=== PATIENT | female | born 1970 | race Caucasian/White ===

== ENCOUNTER → 2016-08-10 | Outpatient (CLI) | payer OTHER | LOC: FIMAGING 11:01 | PROVIDERS: ATTEND Otolaryngology | DX: R05 Cough (principal) ==

== ENCOUNTER 2016-10-15 15:03 | Emergency (ER) | payer OTHER ==
[2016-10-15 15:12] VITALS: BP 112/69; PULSE 90; RESP 16; TEMP 98.2; O2SAT 96
[2016-10-15] MEDS ORDERED: IBUPROFEN 600 MG TAB PO ONE (15:15)
--- NOTE | 2016-10-15 15:17 | EDPHY ---
H & P Time Seen by Provider: 10/15/16 15:17 HPI/ROS: CHIEF COMPLAINT: Left great toe pain HISTORY OF PRESENT ILLNESS: Dropped a rock on it (assembler type bar and segment) 4 days ago accidentally and continues to have pain. Blood under the toenail. REVIEW OF SYSTEMS: No other injuries PAST MEDICAL HISTORY: Includes appendectomy, tonsillectomy, sinus surgery General Appearance: Alert and conversant, cooperative. Pain and tenderness over the distal phalanx of the left great toe with a 90% subungual hematoma. Normal motor sensory and skin perfusion. No tenderness proximally in the toe or foot. Emergency Department course/MDM: X-ray performed of the left great toe, indication was pain after trauma, and personally interpreted by myself as normal. Procedure note, nail trephination. Risk and benefits discussed with patient including nail cosmesis and consented. Indication: Subungual hematoma, symptomatic. Chlorhexidine prep was performed and digital block with 3.5 mL of 0.25% bupivacaine without epinephrine. After Iodine prep and with standard sterile technique a handheld cautery was used to create a hole in the nail with good drainage of subungual blood. Patient tolerated procedure well. Much less pain at discharge. Smoking Status: Never smoked Constitutional: Initial Vital Signs Temperature (C) 36.8 C 10/15/16 15:09 Heart Rate 90 10/15/16 15:09 Respiratory Rate 16 10/15/16 15:09 Blood Pressure 112/69 10/15/16 15:09 O2 Sat (%) 96 10/15/16 15:09 O2 Delivery Mode Room Air Allergies/Adverse Reactions: No Known Allergies Allergy (Verified 10/15/16 15:07) Home Medications: Medication Instructions Recorded NK [No Known Home Meds] 10/15/16 MDM/Departure - MDM Medications Given: Discontinued Medications Ibuprofen (Motrin) 600 mg PO EDNOW ONE Stop: 10/15/16 15:16 Last Admin: 10/15/16 15:19 Dose: 600 mg - Depart Disposition: Home, Routine, Self-Care Clinical Impression: Hematoma, subungual, great toe, left Qualifiers: Encounter type: initial encounter Qualified Code(s): S90.212A - Contusion of left great toe with damage to nail, initial encounter Condition: Good Instructions: Subungual Hematoma (ED) Referrals: Liliana Connell MD [Primary Care Provider] - As per Instructions
== END 2016-10-15 15:47 | disposition home or self-care (01) ==
LOC: CED 15:03
PROC: 0H9RXZZ Drainage of Toe Nail, External Approach (ICD-10-PCS; principal; 2016-10-15)
DX: S90.212A Contusion of left great toe with damage to nail, initial encounter (principal); W20.8XXA Other cause of strike by thrown, projected or falling object, initial encounter
CPT/HCPCS: 73660-PO